=== PATIENT | female | born 1960 ===

== ENCOUNTER 2020-07-22 13:06 | Outpatient (CLI) | payer OTHER ==
--- NOTE | 2020-07-22 16:09 | Magnetic Resonance Report ---
MRI LUMBAR SPINE WITHOUT CONTRAST INDICATION / CLINICAL INFORMATION: LUMBAR RADICULOPATHY M54.16. TECHNIQUE: Multisequence, multiplanar images of the lumbar spine were obtained. COMPARISON: None available. FINDINGS: POSTOPERATIVE CHANGES:None ALIGNMENT: Grade 1 spondylolisthesis is present at the L4-5 level. VERTEBRAE:Large benign hemangiomata of bone are identified in the T12 and L4 vertebral bodies. No ela picious areas of abnormal bone marrow signal intensity are identified. DISC MORPHOLOGY: Mild disc desiccation is noted at the L5-S1 level. Disc height and disc signal inten sity are otherwise normally maintained. VISUALIZED SPINAL CORD: Distal thoracic spinal cord, conus and nerve roots of the cauda equina all tavares ve an unremarkable appearance. Conus terminates at about the level of the mid L1 vertebrae. NPOAR-TB-YOBUR ANALYSIS: L1-2: No significant abnormality. L2-3: No significant abnormality. L3-4: No significant abnormality. L4-5: Moderate facet arthropathy is noted. Facet hypertrophic spurring is present bilaterally. A smal l right-sided facet joint effusion is demonstrated. Facet arthritic change and a grade 1 spondylolysi s contribute to mild central canal stenosis and right lateral recess stenosis. The L4 nerve root neur oforamina are adequately maintained. L5-S1: Mild disc desiccation is noted. There is a small high signal annular fissure located about 6:0 0 position. There is a minimal left paracentral disc protrusion without significant thecal sac deform ity. Central spinal canal and neuroforamina are adequately maintained. PARASPINAL SOFT TISSUES: Evaluation of the paraspinous soft tissues reveals no definite abnormalities . IMPRESSION: 1. Degenerative grade 1 spondylolisthesis at L4-5 is associated with mild central canal stenosis and right lateral recess stenosis. Signer Name: Fernando Lemos MD Signed: 07/22/2020 4:04 PM Workstation Name: [id number]
== END 2020-07-22 13:07 | disposition home or self-care (01) ==
LOC: SPVIMAG 13:06
DX: M43.16 Spondylolisthesis, lumbar region (principal); M54.16 Radiculopathy, lumbar region; M48.061 Spinal stenosis, lumbar region without neurogenic claudication
CPT/HCPCS: 72148

== ENCOUNTER 2020-07-29 09:00 | Outpatient (CLI) | payer OTHER | END 2020-07-29 09:01 | disposition home or self-care (01) | LOC: SLR 09:00 | PROVIDERS: ATTEND Specialist | DX: G47.33 Obstructive sleep apnea (adult) (pediatric) (principal); R40.0 Somnolence; E66.9 Obesity, unspecified; I10 Essential (primary) hypertension | CPT/HCPCS: G0399 ==